=== PATIENT | female | born 1950 | race Caucasian/White ===

== ENCOUNTER → 2016-07-14 | Outpatient (CLI) | payer MEDICARE ==
[~2016-07-14] VITALS: Ht 160 cm; Wt 122.4 kg
[~2016-07-14] MED LIST: AUGM875T27 PO; BACL10TA2 PO; BRIN1TAB3 PO; BUSP10TA PO; CALC600T21 PO; FELO5TAB3 PO; K-TA10TA2 PO; LEVO125T3 PO; LIDOCAINE 2% INJ 100 MG/5 ML SDV (FOR ANES.) As Ordered ONE; MAGN1TAB25 PO; MECL-86 PO; MECL12.575 PO; NEUR100C PO; NS 1,000 ML IV SCH; OMEP40CA2 PO; PRAV40TA2 PO; PREG50CA PO; PROP1TAB29 PO; PROPOFOL 200 MG/20 ML VIAL As Ordered ONE; VITA-112 PO; VITA500C10 PO; XANA0.5T PO
--- NOTE | 2016-07-14 10:03 | ROOR ---
Patient Name: Lizbet Rodriguez Procedure Date: 07/14/2016 9:46 AM Date of : 1950 Age: 66 Room: [facility] Gender: Female Note Status: Finalized Procedure: Upper GI endoscopy Indications: Dysphagia, Heartburn Providers: Quintin FELTON MD Referring MD: SIRISHA ANDINO MD Requesting Provider: Medicines: Monitored Anesthesia Care Complications: No immediate complications. Procedure: Pre-Anesthesia Assessment: - The heart rate, respiratory rate, oxygen saturations, blood pressure, adequacy of pulmonary ventilation, and response to care were monitored throughout the procedure. The Endoscope was introduced through the mouth, and advanced to the second part of duodenum. The upper GI endoscopy was accomplished without difficulty. The patient tolerated the procedure well. Findings: A web was found at the cricopharyngeus. The scope was withdrawn. Dilation was performed with a Little dilator with mild resistance at 54 Fr. The dilation site was examined following endoscope reinsertion and showed complete resolution of luminal narrowing. The exam of the esophagus was otherwise normal. A medium-sized hiatal hernia was present. The entire examined stomach was normal. The examined duodenum was normal. 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 Dilated. - Esophagus otherwise normal - Medium-sized hiatal hernia. - Stomach otherwise normal. - Normal examined duodenum. - No specimens collected. Recommendation: - Observe patient's clinical course. - I anticipate no further need for intervention. - Continue present medications. Quintin Felton MD Quintin FELTON MD 07/14/2016 10:02:38 AM This report has been signed electronically. Number of Addenda: 0 Note Initiated On: 07/14/2016 9:46 AM Estimated Blood Loss: Estimated blood loss: none.
[2016-07-14 10:40] VITALS: BP 140/69
== END | disposition home or self-care (01) ==
LOC: M OPP 09:00
PROVIDERS: ATTEND Internal Medicine Gastroenterology
DX: K44.9 Diaphragmatic hernia without obstruction or gangrene (principal); Q39.4 Esophageal web; I10 Essential (primary) hypertension; E03.9 Hypothyroidism, unspecified; R06.83 Snoring; M79.7 Fibromyalgia; F41.9 Anxiety disorder, unspecified; G47.30 Sleep apnea, unspecified; Z79.899 Other long term (current) drug therapy; Z88.1 Allergy status to other antibiotic agents; R42 Dizziness and giddiness

== ENCOUNTER 2018-05-10 18:53 | Inpatient (IN) | payer MEDICARE ==
[2018-05-10] MEDS: HYDROMORPHONE HCL 0.5 MG/ 0.5 ML SYRINGE (J1170 PER 1) IV (19:10)
[2018-05-10] MEDS ORDERED: PROPOFOL 200 MG/20 ML VIAL As Ordered ×2 (19:48→19:54)
[2018-05-10] MEDS: PROPOFOL 200 MG/20 ML VIAL IV (19:55)
[2018-05-10 20:14] LABS: BASO # 0.1 10^3/uL (0.0-0.2); BASO % 0.8 % (0.0-1.0); EOS # 0.2 10^3/uL (0.0-0.50); EOS % 1.8 % (0.0-3.0); HEMATOCRIT 42.1 % (36.0-47.0); HEMOGLOBIN 13.7 g/dl (12.0-15.5); IMMATURE GRANULOCYTE % 0.4 % (0-3.0); LYMPH # 2.3 10^3/uL (1.5-4.5); LYMPH % 23.4 % (24.0-44.0); MEAN CORPUSCULAR HEMOGLOBIN 29.1 pg (27.0-33.0); MEAN CORPUSCULAR HGB CONC 32.5 g/dl (32.0-36.5); MEAN CORPUSCULAR VOLUME 89.4 fl (80.0-96.0); MONO # 0.7 10^3/uL (0.0-0.8); MONO % 6.7 % (0.0-5.0); NEUTROPHILS # 6.6 10^3/uL (1.8-7.7); NEUTROPHILS % 66.9 % (36.0-66.0); PLATELET COUNT, AUTOMATED 266 10^3/uL (150-450); RED BLOOD COUNT 4.71 10^6/uL (4.00-5.40); RED CELL DISTRIBUTION WIDTH 14.1 % (11.5-14.5); WHITE BLOOD COUNT 9.9 10^3/uL (4.0-10.0)
[2018-05-10 20:29] LABS: ANION GAP 6 MEQ/L (8-16); BLOOD UREA NITROGEN 20 MG/DL (7-18); CALCIUM LEVEL 8.7 MG/DL (8.8-10.2); CARBON DIOXIDE LEVEL 27 MEQ/L (21-32); CHLORIDE LEVEL 106 MEQ/L (98-107); CREATININE FOR GFR 1.15 MG/DL (0.55-1.30); GLOMERULAR FILTRATION RATE 50.1 (>45); GLUCOSE, FASTING 129 MG/DL (70-100); POTASSIUM SERUM 4.5 MEQ/L (3.5-5.1); SODIUM LEVEL 139 MEQ/L (136-145)
[2018-05-10 20:42] LABS: INR 1.02; PROTHROMBIN TIME 13.5 SECONDS (12.1-14.4)
[2018-05-10 20:52] LABS: PARTIAL THROMBOPLASTIN TIME 27.4 SECONDS (25.4-37.6)
[2018-05-10] MEDS: HEPARIN SOD (PORCINE) 5000 UNITS/ML VIAL SQ (21:00)
[2018-05-10] MEDS ORDERED: ACETAMINOPHEN TAB 650MG DOSE (2X325MG) PO (22:15)
[2018-05-10] MEDS ORDERED: ONDANSETRON 4MG/2ML VIAL (J2405) IV (22:15)
[2018-05-10] MEDS ORDERED: MORPHINE 4 MG/ML 1ML VIAL/SYRINGE (J2270) IV (22:15)
[2018-05-10 22:42] LABS: FREE THYROXINE INDEX 3.9 % (1.3-4.8); T UPTAKE 29 % (30-39); THYROXINE (T4) 13.4 UG/DL (4.5-12.0)
[2018-05-11] MEDS: PERCOCET 5MG/325MG TAB PO ×5 (01:02→21:38)
[2018-05-11] MEDS: LR 1,000 ML IV ×2 (01:09→11:35)
[2018-05-11] MEDS: SENOKOT S TAB PO ×3 (01:27→20:25)
[2018-05-11] MEDS: PROPRANOLOL 20 MG TAB PO ×3 (01:27→20:25)
[2018-05-11] MEDS: OMEPRAZOLE 20 MG CAP PO ×3 (01:27→20:25)
[2018-05-11] MEDS: busPIRone 10 MG TAB PO ×3 (01:28→20:25)
[2018-05-11] MEDS: MECLIZINE 12.5 MG TAB PO ×3 (01:28→20:25)
[2018-05-11] MEDS: LEVOTHYROXINE 125MCG TABLET (0.125MG) PO (06:19)
[2018-05-11 06:47] LABS: HEMATOCRIT 38.7 % (36.0-47.0); HEMOGLOBIN 12.2 g/dl (12.0-15.5); MEAN CORPUSCULAR HEMOGLOBIN 28.6 pg (27.0-33.0); MEAN CORPUSCULAR HGB CONC 31.5 g/dl (32.0-36.5); MEAN CORPUSCULAR VOLUME 90.8 fl (80.0-96.0); PLATELET COUNT, AUTOMATED 229 10^3/uL (150-450); RED BLOOD COUNT 4.26 10^6/uL (4.00-5.40); RED CELL DISTRIBUTION WIDTH 14.3 % (11.5-14.5); WHITE BLOOD COUNT 8.4 10^3/uL (4.0-10.0)
[2018-05-11 06:58] LABS: ANION GAP 7 MEQ/L (8-16); BLOOD UREA NITROGEN 18 MG/DL (7-18); CALCIUM LEVEL 8.3 MG/DL (8.8-10.2); CARBON DIOXIDE LEVEL 27 MEQ/L (21-32); CHLORIDE LEVEL 108 MEQ/L (98-107); CREATININE FOR GFR 0.91 MG/DL (0.55-1.30); GLOMERULAR FILTRATION RATE > 60.0 (>45); GLUCOSE, FASTING 89 MG/DL (70-100); MAGNESIUM LEVEL 1.9 MG/DL (1.8-2.4); SODIUM LEVEL 142 MEQ/L (136-145)
[2018-05-11] MEDS ORDERED: TRINTELLIX 20 MG PO (09:00)
[2018-05-11] MEDS: ASCORBIC ACID 500 MG TAB PO (10:20)
[2018-05-11] MEDS: PRAVASTATIN 20 MG TAB PO (10:20)
[2018-05-11] MEDS: MAGNESIUM OXIDE 400 MG TAB (MAG-OX) PO (10:20)
[2018-05-11] MEDS: VITAMIN D 1,000 INTERNATIONAL UNITS TABLET PO (10:20)
[2018-05-11] MEDS: HEPARIN SOD (PORCINE) 5000 UNITS/ML VIAL SQ (10:21)
[2018-05-11] MEDS: HYDROMORPHONE HCL 0.5 MG/ 0.5 ML SYRINGE (J1170 PER 1) IV (13:40)
[2018-05-12] MEDS: LR 1,000 ML IV ×4 (00:30→19:30)
[2018-05-12] MEDS: PERCOCET 5MG/325MG TAB PO ×4 (01:47→20:03)
[2018-05-12 05:50] LABS: HEMATOCRIT 41.2 % (36.0-47.0); HEMOGLOBIN 12.9 g/dl (12.0-15.5); MEAN CORPUSCULAR HEMOGLOBIN 28.6 pg (27.0-33.0); MEAN CORPUSCULAR HGB CONC 31.3 g/dl (32.0-36.5); MEAN CORPUSCULAR VOLUME 91.4 fl (80.0-96.0); PLATELET COUNT, AUTOMATED 216 10^3/uL (150-450); RED BLOOD COUNT 4.51 10^6/uL (4.00-5.40); RED CELL DISTRIBUTION WIDTH 14.1 % (11.5-14.5); WHITE BLOOD COUNT 7.1 10^3/uL (4.0-10.0)
[2018-05-12] MEDS: LEVOTHYROXINE 125MCG TABLET (0.125MG) PO (06:02)
[2018-05-12 06:08] LABS: ANION GAP 7 MEQ/L (8-16); BLOOD UREA NITROGEN 13 MG/DL (7-18); CALCIUM LEVEL 8.6 MG/DL (8.8-10.2); CARBON DIOXIDE LEVEL 28 MEQ/L (21-32); CHLORIDE LEVEL 105 MEQ/L (98-107); CREATININE FOR GFR 0.88 MG/DL (0.55-1.30); GLOMERULAR FILTRATION RATE > 60.0 (>45); GLUCOSE, FASTING 91 MG/DL (70-100); SODIUM LEVEL 140 MEQ/L (136-145)
[2018-05-12] MEDS ORDERED: MIDAZOLAM INJ 2 MG/2 ML VIAL (J2250) As Ordered ×2 (08:17→09:16)
[2018-05-12] MEDS ORDERED: fentaNYL 100 MCG/2 ML INJECTION (J3010) As Ordered ×2 (08:17→09:16)
[2018-05-12] MEDS: fentaNYL 100 MCG/2 ML INJECTION (J3010) IV (08:35)
[2018-05-12] MEDS: MIDAZOLAM INJ 2 MG/2 ML VIAL (J2250) IV (08:35)
[2018-05-12] MEDS: PROPRANOLOL 20 MG TAB PO ×3 (08:45→20:14)
[2018-05-12] MEDS ORDERED: ceFAZolin 2 GM/D5W 50 ML IV BAG (J0690 PER 500MG) As Ordered (08:51)
[2018-05-12] MEDS ORDERED: ePHEDrine SULFATE 25 MG/5 ML(5MG/ML) SYRINGE As Ordered ×2 (09:16→09:29)
[2018-05-12] MEDS ORDERED: PROPOFOL 200 MG/20 ML VIAL As Ordered ×2 (09:16→09:44)
[2018-05-12] MEDS ORDERED: PHENYLEPHRINE INJ 10MG/ML VIAL (J2370) As Ordered (09:47)
[2018-05-12] MEDS ORDERED: dexameTHASONE 10 MG/1 ML VIAL PRES.FREE (J1100) (10:14)
[2018-05-12] MEDS ORDERED: ROPIvacaine 0.5% 30 ML INJECTION (J2795 PER 1MG) (10:14)
[2018-05-12] MEDS ORDERED: EPINEPHrine INJ 1 MG/ML 1ML AMP (10:14)
[2018-05-12] MEDS ORDERED: fentaNYL 100 MCG/2 ML INJECTION (J3010) IV (11:30)
[2018-05-12] MEDS ORDERED: NORCO, ANEXSIA 5/325MG TABLET (HYDROcodone/ACETAMINOPHEN) PO (11:30)
[2018-05-12] MEDS ORDERED: ACETAMINOPHEN TAB 650MG DOSE (2X325MG) PO (11:30)
[2018-05-12] MEDS ORDERED: ONDANSETRON 4MG/2ML VIAL (J2405) IV (11:30)
[2018-05-12] MEDS ORDERED: ONDANSETRON 4MG/2ML VIAL (J2405) As Ordered (11:54)
[2018-05-12] MEDS: ONDANSETRON 4MG/2ML VIAL (J2405) IV (11:58)
[2018-05-12] MEDS: PRAVASTATIN 20 MG TAB PO (14:29)
[2018-05-12] MEDS: MAGNESIUM OXIDE 400 MG TAB (MAG-OX) PO (14:29)
[2018-05-12] MEDS: OMEPRAZOLE 20 MG CAP PO ×2 (14:29→20:13)
[2018-05-12] MEDS: MECLIZINE 12.5 MG TAB PO ×2 (14:30→20:13)
[2018-05-12] MEDS: ASCORBIC ACID 500 MG TAB PO (14:30)
[2018-05-12] MEDS: SENOKOT S TAB PO ×2 (14:30→20:13)
[2018-05-12] MEDS: VITAMIN D 1,000 INTERNATIONAL UNITS TABLET PO (14:30)
[2018-05-12] MEDS: busPIRone 10 MG TAB PO ×2 (14:30→20:13)
[2018-05-13] MEDS: LR 1,000 ML IV ×2 (03:30→11:30)
[2018-05-13] MEDS: PERCOCET 5MG/325MG TAB PO ×5 (04:03→21:10)
[2018-05-13 05:49] LABS: MEAN CORPUSCULAR HEMOGLOBIN 29.1 pg (27.0-33.0); MEAN CORPUSCULAR HGB CONC 32.4 g/dl (32.0-36.5); MEAN CORPUSCULAR VOLUME 89.6 fl (80.0-96.0); PLATELET COUNT, AUTOMATED 212 10^3/uL (150-450); RED BLOOD COUNT 4.13 10^6/uL (4.00-5.40); RED CELL DISTRIBUTION WIDTH 14.1 % (11.5-14.5); WHITE BLOOD COUNT 9.7 10^3/uL (4.0-10.0)
[2018-05-13 06:09] LABS: ANION GAP 9 MEQ/L (8-16); BLOOD UREA NITROGEN 11 MG/DL (7-18); CALCIUM LEVEL 8.1 MG/DL (8.8-10.2); CARBON DIOXIDE LEVEL 28 MEQ/L (21-32); CHLORIDE LEVEL 104 MEQ/L (98-107); CREATININE FOR GFR 0.79 MG/DL (0.55-1.30); GLOMERULAR FILTRATION RATE > 60.0 (>45); GLUCOSE, FASTING 117 MG/DL (70-100); MAGNESIUM LEVEL 2.1 MG/DL (1.8-2.4); SODIUM LEVEL 141 MEQ/L (136-145)
[2018-05-13] MEDS: ceFAZolin SOD 1 GM in D5W MINI-BAG PLUS 50 ML IV ×2 (06:44→13:22)
[2018-05-13] MEDS: LEVOTHYROXINE 125MCG TABLET (0.125MG) PO (06:44)
[2018-05-13] MEDS: ASPIRIN 325 MG TAB PO (08:25)
[2018-05-13] MEDS: OMEPRAZOLE 20 MG CAP PO ×2 (08:26→21:09)
[2018-05-13] MEDS: MECLIZINE 12.5 MG TAB PO ×2 (08:26→21:09)
[2018-05-13] MEDS: SENOKOT S TAB PO ×2 (08:26→21:09)
[2018-05-13] MEDS: MIRALAX *UNIT DOSE* 17GM PACKET PO (08:26)
[2018-05-13] MEDS: VITAMIN D 1,000 INTERNATIONAL UNITS TABLET PO (08:26)
[2018-05-13] MEDS: PROPRANOLOL 20 MG TAB PO ×2 (08:26→21:15)
[2018-05-13] MEDS: ASCORBIC ACID 500 MG TAB PO (08:26)
[2018-05-13] MEDS: PRAVASTATIN 20 MG TAB PO (08:27)
[2018-05-13] MEDS: busPIRone 10 MG TAB PO ×2 (08:27→21:11)
[2018-05-13] MEDS: MAGNESIUM OXIDE 400 MG TAB (MAG-OX) PO (08:27)
[2018-05-13] MEDS: MORPHINE 4 MG/ML 1ML VIAL/SYRINGE (J2270) IV (19:54)
[2018-05-13] MEDS: zolPIDEM TARTRATE 5 MG TAB PO (21:11)
[2018-05-14] MEDS: PERCOCET 5MG/325MG TAB PO ×3 (03:59→13:24)
[2018-05-14] MEDS: LEVOTHYROXINE 150MCG TABLET (0.15MG) PO (05:56)
[2018-05-14 06:48] LABS: HEMOGLOBIN 11.7 g/dl (12.0-15.5); MEAN CORPUSCULAR HEMOGLOBIN 28.8 pg (27.0-33.0); MEAN CORPUSCULAR HGB CONC 31.6 g/dl (32.0-36.5); MEAN CORPUSCULAR VOLUME 91.1 fl (80.0-96.0); PLATELET COUNT, AUTOMATED 200 10^3/uL (150-450); RED BLOOD COUNT 4.06 10^6/uL (4.00-5.40); RED CELL DISTRIBUTION WIDTH 14.5 % (11.5-14.5); WHITE BLOOD COUNT 7.7 10^3/uL (4.0-10.0)
[2018-05-14 07:03] LABS: ANION GAP 7 MEQ/L (8-16); BLOOD UREA NITROGEN 19 MG/DL (7-18); CALCIUM LEVEL 8.1 MG/DL (8.8-10.2); CARBON DIOXIDE LEVEL 27 MEQ/L (21-32); CHLORIDE LEVEL 108 MEQ/L (98-107); CREATININE FOR GFR 0.92 MG/DL (0.55-1.30); GLOMERULAR FILTRATION RATE > 60.0 (>45); GLUCOSE, FASTING 113 MG/DL (70-100); POTASSIUM SERUM 3.5 MEQ/L (3.5-5.1); SODIUM LEVEL 142 MEQ/L (136-145)
[2018-05-14] MEDS: PROPRANOLOL 20 MG TAB PO (08:45)
[2018-05-14] MEDS: PRAVASTATIN 20 MG TAB PO (08:45)
[2018-05-14] MEDS: ASPIRIN 325 MG TAB PO (08:45)
[2018-05-14] MEDS: POTASSIUM CHLORIDE 10 MEQ SR TABLET PO (08:45)
[2018-05-14] MEDS: SENOKOT S TAB PO (08:46)
[2018-05-14] MEDS: VITAMIN D 1,000 INTERNATIONAL UNITS TABLET PO (08:46)
[2018-05-14] MEDS: ASCORBIC ACID 500 MG TAB PO (08:46)
[2018-05-14] MEDS: MECLIZINE 12.5 MG TAB PO (08:46)
[2018-05-14] MEDS: MAGNESIUM OXIDE 400 MG TAB (MAG-OX) PO (08:46)
[2018-05-14] MEDS: OMEPRAZOLE 20 MG CAP PO (08:46)
[2018-05-14] MEDS: MIRALAX *UNIT DOSE* 17GM PACKET PO (08:47)
[2018-05-14] MEDS: busPIRone 10 MG TAB PO (08:47)
== END 2018-05-14 14:15 | disposition home or self-care (01) | DRG 494 ==
LOC: M MS5PR 05-11 00:36 → M ED 18:53 → M ED INP 22:08
PROC: 0SSG04Z Reposition Left Ankle Joint with Internal Fixation Device, Open Approach (ICD-10-PCS; principal; 2018-05-12 08:50)
DX: S82.852A Displaced trimalleolar fracture of left lower leg, initial encounter for closed fracture (principal); E03.9 Hypothyroidism, unspecified; I10 Essential (primary) hypertension; G47.33 Obstructive sleep apnea (adult) (pediatric); M79.7 Fibromyalgia; Z86.73 Personal history of transient ischemic attack (TIA), and cerebral infarction without residual deficits; E78.5 Hyperlipidemia, unspecified; Z79.82 Long term (current) use of aspirin; Z79.899 Other long term (current) drug therapy; R42 Dizziness and giddiness; W18.30XA Fall on same level, unspecified, initial encounter

== ENCOUNTER → 2019-02-28 | Outpatient (CLI) | payer MEDICARE ==
[~2019-02-28] MED LIST changes: +ASPI-255 PO; -AUGM875T27 PO; +AUGM875T28 PO; +BUME1TAB3 PO; +CALC1TAB63 PO; -CALC600T21 PO; +CALC600T60 PO; +FELO5TAB PO; -FELO5TAB3 PO; +FURO20TA2 PO; -LEVO125T3 PO; +LEVO125T4 PO; -LIDOCAINE 2% INJ 100 MG/5 ML SDV (FOR ANES.) As Ordered ONE; +LOSA50TA88 PO; -MAGN1TAB25 PO; +MAGN1TAB26 PO; -NS 1,000 ML IV SCH; +ONDA4TAB5 PO; +PERC5TAB12 PO; +POTA10CA32 PO; -PROP1TAB29 PO; +PROP20TA72 PO; -PROPOFOL 200 MG/20 ML VIAL As Ordered ONE; +[UNRECOGNIZED DRUG - CODE] PO
--- NOTE | 2019-02-28 13:58 | REP ---
REASON: Status post ORIF for trimalleolar fracture. COMPARISON: Preoperative examination of 05/10/2018. Internal fixation plate and multiple affixing screws have been applied to the lateral cortex of the distal fibula reducing that previously described fracture. The alignment is near anatomical. Cancellous screws are seen in the medial malleolus affixing that previously described fracture. The alignment is near anatomical. There is spray artifact arising from the metallic radiodensities. There is slight asymmetric narrowing of the mortise laterally. There is a healed valgus deformity. The posterior malleolar fracture has healed. The subtalar joints are within normal limits. There is no evidence of acute fracture. Even with the spray artifact arising from the metallic radiodensities, the distal tibial an distal fibular fractures appear healed. There is no abnormal soft tissue swelling. IMPRESSION: Status post ORIF as described above. There is a healed valgus deformity and there is mild asymmetric mortise narrowing as described above. There is no evidence of acute fracture. Electronically Signed by Odell Wilson DO 02/28/2019 03:56 P
== END ==
LOC: M RAD 12:06
PROVIDERS: ATTEND Orthopaedic Surgery Sports Medicine
DX: S82.842D Displaced bimalleolar fracture of left lower leg, subsequent encounter for closed fracture with routine healing (principal)

== ENCOUNTER 2019-03-25 10:47 | Day surgery (SDC) | payer MEDICARE ==
[~2019-03-25] VITALS: Ht 160 cm; Wt 110.2 kg
[~2019-03-25 10:47] MED LIST changes: +NS 1,000 ML IV ONE; -OMEP40CA2 PO; +OMEP40CA97 PO
[2019-03-25] MEDS ORDERED: LIDOCAINE 2% INJ 100 MG/5 ML SDV (FOR ANES.) As Ordered ONE (11:10)
[2019-03-25] MEDS ORDERED: PROPOFOL 200 MG/20 ML VIAL As Ordered ONE ×2 (11:10→11:52)
--- NOTE | 2019-03-25 12:18 | ROOR ---
Patient Name: Lizbet Rodriguez Procedure Date: 03/25/2019 11:27 AM Date of : 1950 Age: 68 Room: [facility] Gender: Female Note Status: Finalized Procedure: Colonoscopy Indications: Screening for colorectal malignant neoplasm Providers: Robert Rae MD Referring MD: Ambrocio Thomas MD Requesting Provider: Medicines: Monitored Anesthesia Care Complications: No immediate complications. Procedure: Pre-Anesthesia Assessment: - Prior to the procedure, a History and Physical was performed, and patient medications and allergies were reviewed. The patient is competent. The risks and benefits of the procedure and the sedation options and risks were discussed with the patient. All questions were answered and informed consent was obtained. Patient identification and proposed procedure were verified by the physician, the nurse and the anesthesiologist in the procedure room. Mental Status Examination: normal. Airway Examination: normal oropharyngeal airway and neck mobility. Respiratory Examination: clear to auscultation. CV Examination: normal. Prophylactic Antibiotics: The patient does not require prophylactic antibiotics. Prior Anticoagulants: The patient has taken no previous anticoagulant or antiplatelet agents. ASA Grade Assessment: III - A patient with severe systemic disease. After reviewing the risks and benefits, the patient was deemed in satisfactory condition to undergo the procedure. The anesthesia plan was to use monitored anesthesia care (MAC). Immediately prior to administration of medications, the patient was re-assessed for adequacy to receive sedatives. The heart rate, respiratory rate, oxygen saturations, blood pressure, adequacy of pulmonary ventilation, and response to care were monitored throughout the procedure. The physical status of the patient was re-assessed after the procedure. The Colonoscope was introduced through the anus and advanced to the cecum, identified by appendiceal orifice and ileocecal valve. The colonoscopy was performed without difficulty. The patient tolerated the procedure well. The quality of the bowel preparation was good. The terminal ileum, ileocecal valve, appendiceal orifice, and rectum were photographed. Scope insertion time was 3 minutes. Scope withdrawal time was 8 minutes. The total duration of the procedure was 11 minutes. Findings: The perianal and digital rectal examinations were normal. The terminal ileum appeared normal. Four sessile polyps were found in the ascending colon. The polyps were 3 to 5 mm in size. These polyps were removed with a cold biopsy forceps. Resection and retrieval were complete. Verification of patient identification for the specimen was done by the physician and nurse using the patient's name, date and medical record number. Estimated blood loss was minimal. A 8 mm polyp was found in the transverse colon. The polyp was sessile. The polyp was removed with a cold snare. Resection and retrieval were complete. Normal mucosa was found in the entire colon. Biopsies for histology were taken with a cold forceps from the right colon, left colon and rectosigmoid colon for evaluation of microscopic colitis. Multiple small and large-mouthed diverticula were found from sigmoid to descending colon. There was no evidence of diverticular bleeding. Non-bleeding external and internal hemorrhoids were found during retroflexion. The hemorrhoids were large. Impression: - The examined portion of the ileum was normal. - Four 3 to 5 mm polyps in the ascending colon, removed with a cold biopsy forceps. Resected and retrieved. - One 8 mm polyp in the transverse colon, removed with a cold snare. Resected and retrieved. - Normal mucosa in the entire examined colon. Biopsied. - Moderate diverticulosis from sigmoid to descending colon. There was no evidence of diverticular bleeding. - Non-bleeding external and internal hemorrhoids. Recommendation: - Patient has a contact number available for emergencies. The signs and symptoms of potential delayed complications were discussed with the patient. Return to normal activities tomorrow. Written discharge instructions were provided to the patient. - High fiber diet. - Continue present medications. - Use fiber, for example Citrucel, Fibercon, Konsyl or Metamucil. - Await pathology results. - Repeat colonoscopy in 3 - 5 years for surveillance based on pathology results. - Telephone GI clinic for pathology results in 2 weeks. - Return to primary care physician. Robert Rae MD Robert Rae MD 03/25/2019 12:18:24 PM Electronically signed by Robert Rae MD Number of Addenda: 0 Note Initiated On: 03/25/2019 11:27 AM Estimated Blood Loss: Estimated blood loss was minimal.
--- NOTE | 2019-03-25 12:28 | ROOR ---
Patient Name: Lizbet Rodriguez Procedure Date: 03/25/2019 11:26 AM Date of : 1950 Age: 68 Room: [facility] Gender: Female Note Status: Finalized Procedure: Upper GI endoscopy Indications: Dyspepsia Providers: Robert Rae MD Referring MD: Ambrocio Thomas MD Requesting Provider: Medicines: Monitored Anesthesia Care Complications: No immediate complications. Procedure: Pre-Anesthesia Assessment: - Prior to the procedure, a History and Physical was performed, and patient medications and allergies were reviewed. The patient is competent. The risks and benefits of the procedure and the sedation options and risks were discussed with the patient. All questions were answered and informed consent was obtained. Patient identification and proposed procedure were verified by the physician, the nurse and the anesthesiologist in the procedure room. Mental Status Examination: alert and oriented. Airway Examination: normal oropharyngeal airway and neck mobility. Respiratory Examination: clear to auscultation. CV Examination: normal. Prophylactic Antibiotics: The patient does not require prophylactic antibiotics. Prior Anticoagulants: The patient has taken no previous anticoagulant or antiplatelet agents. ASA Grade Assessment: II - A patient with mild systemic disease. After reviewing the risks and benefits, the patient was deemed in satisfactory condition to undergo the procedure. The anesthesia plan was to use monitored anesthesia care (MAC). Immediately prior to administration of medications, the patient was re-assessed for adequacy to receive sedatives. The heart rate, respiratory rate, oxygen saturations, blood pressure, adequacy of pulmonary ventilation, and response to care were monitored throughout the procedure. The physical status of the patient was re-assessed after the procedure. The Endoscope was introduced through the mouth, and advanced to the second part of duodenum. The upper GI endoscopy was accomplished without difficulty. The patient tolerated the procedure well. Findings: LA Grade A (one or more mucosal breaks less than 5 mm, not extending between tops of 2 mucosal folds) esophagitis with no bleeding was found 34 to 35 cm from the incisors. Biopsies were taken with a cold forceps for histology. Verification of patient identification for the specimen was done by the physician and nurse using the patient's name, date and medical record number. Estimated blood loss was minimal. A medium-sized hiatal hernia was present. Scattered mild inflammation characterized by erythema and granularity was found in the gastric antrum. Biopsies were taken with a cold forceps for Helicobacter pylori testing. The duodenal bulb and second portion of the duodenum were normal. Biopsies for histology were taken with a cold forceps for evaluation of celiac disease. Impression: - LA Grade A reflux esophagitis. Biopsied. - Medium-sized hiatal hernia. - Gastritis. Biopsied. - Normal duodenal bulb and second portion of the duodenum. Biopsied. Recommendation: - Patient has a contact number available for emergencies. The signs and symptoms of potential delayed complications were discussed with the patient. Return to normal activities tomorrow. Written discharge instructions were provided to the patient. - High fiber diet. - Continue present medications. - Follow an antireflux regimen. - Await pathology results. - Telephone GI clinic for pathology results in 2 weeks. - Return to primary care physician. Robert Rae MD Robert Rae MD 03/25/2019 12:28:20 PM Electronically signed by Robert Rae MD Number of Addenda: 0 Note Initiated On: 03/25/2019 11:26 AM Estimated Blood Loss: Estimated blood loss was minimal.
[2019-03-25 12:40] VITALS: BP 135/65
== END 2019-03-25 12:52 | disposition home or self-care (01) ==
LOC: M OPP 10:47
PROVIDERS: ATTEND Internal Medicine Gastroenterology
DX: K64.8 Other hemorrhoids (principal); D12.2 Benign neoplasm of ascending colon; D12.3 Benign neoplasm of transverse colon; K57.30 Diverticulosis of large intestine without perforation or abscess without bleeding; R19.4 Change in bowel habit; K21.0 Gastro-esophageal reflux disease with esophagitis; K44.9 Diaphragmatic hernia without obstruction or gangrene; K29.70 Gastritis, unspecified, without bleeding; R10.13 Epigastric pain; M79.7 Fibromyalgia; G57.30 Lesion of lateral popliteal nerve, unspecified lower limb; Z79.899 Other long term (current) drug therapy; Z88.8 Allergy status to other drugs, medicaments and biological substances

== ENCOUNTER 2019-04-10 10:30 | Day surgery (SDC) | payer MEDICARE ==
[~2019-04-10] VITALS: Ht 160 cm; Wt 112.0 kg
[~2019-04-10 10:30] MED LIST changes: +LR 1,000 ML IV ONE; -NS 1,000 ML IV ONE; +ceFAZolin SOD 2 GM in IV 1 EA IV ONE
[2019-04-10] MEDS ORDERED: MIDAZOLAM INJ 2 MG/2 ML VIAL (J2250) As Ordered ONE (11:12)
[2019-04-10] MEDS ORDERED: LIDOCAINE 2% INJ 100 MG/5 ML SDV (FOR ANES.) As Ordered ONE (11:12)
[2019-04-10] MEDS ORDERED: PROPOFOL 200 MG/20 ML VIAL As Ordered ONE (11:12)
[2019-04-10] MEDS ORDERED: dexameTHASONE 4 MG/ML 1ML VIAL (J1100) As Ordered ONE (11:13)
[2019-04-10] MEDS ORDERED: fentaNYL 100 MCG/2 ML INJECTION (J3010) As Ordered ONE ×2 (11:13→15:29)
[2019-04-10] MEDS ORDERED: ONDANSETRON 4MG/2ML VIAL (J2405) As Ordered ONE (11:13)
[2019-04-10] MEDS ORDERED: METOCLOPRAMIDE INJ 10MG/2ML VIAL (J2765) As Ordered ONE (11:38)
[2019-04-10] MEDS ORDERED: KETOROLAC 60 MG/2 ML VIAL (J1885) As Ordered ONE ×3 (11:44→17:40)
[2019-04-10] MEDS ORDERED: BUPIVACAINE HCL 0.25% 30 ML VIAL As Ordered ONE (13:06)
--- NOTE | 2019-04-10 13:43 | RO ---
DATE OF PROCEDURE: 04/10/2019 PREOPERATIVE DIAGNOSIS: Left ankle painful hardware. POSTOPERATIVE DIAGNOSIS: Left ankle painful hardware. PLANNED PROCEDURE: Removal left ankle medial malleolus screws. PROCEDURE PERFORMED: Removal left ankle medial malleolus screws. SURGEON: Sandeep Roberts MD BULB GRADER: TESTING AND REGULATING CHIEF: Dr. Plunkett TYPE OF ANESTHETIC: General anesthetic. OPERATIVE PREAMBLE: this 68-year-old female underwent open reduction internal fixation for unstable bimalleolar fracture. She complained about persistent pain at the medial malleolus. It was elected to go ahead with hardware removal after discussion of the pros, cons, risks, benefits of nonsurgical versus surgical management of this. I reiterated these risks in preoperative holding, signed the left lower extremity and went ahead with surgery. OPERATIVE REPORT: Patient was brought to operating theater. Placed supine on the operating room table. All bony prominences were padded appropriately. Tourniquet was applied to the left thigh. General anesthesia was induced. 2 grams of IV Ancef was administered. Preoperative time out was performed to confirm the site, the patient and surgery. The limb was prepped and draped in the usual sterile fashion allowing ample time for the prep solution to dry before draping. The leg was elevated and tourniquet inflated to 250 mmHg. Began by using the old medial malleolus incision. I used about two-thirds of this. I carried dissection down through skin and subcutaneous tissue. Achieved meticulous hemostasis. I protected the saphenous vein throughout the case. Hardware was identified and removed. Bone was smoothed down with a rongeur. Screws were intact at the tips along the length. Wound was thoroughly irrigated with normal saline. Subcutaneous tissue was closed with interrupted #2-0 Vicryl. Tourniquet was taken down prior to the end of the case. Skin was closed with running #3-0 Monocryl. 9 mL of 0.25% bupivacaine was instilled in and around the incision site. This was followed by cleansing the skin with wet and dry dressing followed by application of Steri-Strips, Adaptic, 4x 8 gauze and overwrapped with sterile 6 inch Jonathan bandage. The patient was woken up from general anesthetic, transferred off the operating table and taken to the postanesthetic care unit in stable condition. All sponge, needle, instrument counts were correct. Estimated blood loss 10 mL. PLAN: The patient's be partial weightbearing with crutches for the first 2 weeks progressing quickly to full weightbearing. I will follow him up in the office in two weeks time. I would like for her to change dressing on postoperative day two. She is aware of the plan and look forward to seeing her in followup.
[2019-04-10] MEDS ORDERED: HYDROMORPHONE HCL 0.5 MG/ 0.5 ML SYRINGE (J1170 PER 1) IV PRN (13:45)
[2019-04-10] MEDS ORDERED: ONDANSETRON 4MG/2ML VIAL (J2405) IV PRN (13:45)
[2019-04-10] MEDS ORDERED: fentaNYL 100 MCG/2 ML INJECTION (J3010) IV PRN (13:45)
[2019-04-10] MEDS ORDERED: PERCOCET 5MG/325MG TAB PO PRN ×2 (13:45→14:46)
[2019-04-10] MEDS ORDERED: LR 1,000 ML IV SCH ×2 (13:45→14:46)
[2019-04-10] MEDS ORDERED: ACETAMINOPHEN TAB 650MG DOSE (2X325MG) PO PRN (14:46)
[2019-04-10] MEDS ORDERED: MORPHINE 2 MG/ML 1ML VIAL (J2270) IV PRN (14:46)
[2019-04-10] MEDS ORDERED: PHENYLephrine HCL 500 MCG/5 ML (100MCG/ML) SYRINGE (J2370) As Ordered ONE ×3 (14:53→17:37)
[2019-04-10] MEDS ORDERED: ePHEDrine SULFATE 25 MG/5 ML(5MG/ML) SYRINGE As Ordered ONE ×2 (15:08→15:15)
[2019-04-10] MEDS ORDERED: ROCURONIUM BROMIDE 50 MG/5 ML VIAL As Ordered ONE (15:26)
[2019-04-10 16:48] VITALS: BP 121/78
[2019-04-10] MEDS ORDERED: ACETAMINOPHEN 1000MG 100ML IV BTL (OFIRMEV) (J0131 PER 10MG) As Ordered ONE (17:34)
[2019-04-10] MEDS ORDERED: HYDROmorphone HCL 2 MG/ML 1ML VIAL (J1170) As Ordered ONE (17:42)
== END 2019-04-10 16:48 | disposition home or self-care (01) ==
LOC: M SDC 10:30
PROVIDERS: ATTEND Orthopaedic Surgery Sports Medicine
DX: T84.84XA Pain due to internal orthopedic prosthetic devices, implants and grafts, initial encounter (principal); Y79.2 Prosthetic and other implants, materials and accessory orthopedic devices associated with adverse incidents; I11.9 Hypertensive heart disease without heart failure; E78.5 Hyperlipidemia, unspecified; E03.9 Hypothyroidism, unspecified; K44.9 Diaphragmatic hernia without obstruction or gangrene; M79.7 Fibromyalgia; R32 Unspecified urinary incontinence; K21.9 Gastro-esophageal reflux disease without esophagitis; F41.9 Anxiety disorder, unspecified; F32.9 Major depressive disorder, single episode, unspecified; G47.30 Sleep apnea, unspecified; Z88.1 Allergy status to other antibiotic agents; Z79.899 Other long term (current) drug therapy; Z87.81 Personal history of (healed) traumatic fracture
CPT/HCPCS: 20680; J0131; J0690; J1100; J1170; J1885; J2250; J2370; J2405; J2765; J3010

== ENCOUNTER → 2019-07-01 | Outpatient (CLI) | payer MEDICARE, MEDICAID ==
[~2019-07-01] MED LIST changes: +D 202000 PO; +DEXI30CA2 PO; -FELO5TAB PO; +FELO5TAB26 PO; -LR 1,000 ML IV ONE; -MECL12.575 PO; +MECL12.589 PO; +ONDA-83 PO; -ONDA4TAB5 PO; -ceFAZolin SOD 2 GM in IV 1 EA IV ONE
[2019-07-01 12:47] LABS: HEMATOCRIT 48.4 % (36.0-47.0); MEAN CORPUSCULAR HEMOGLOBIN 28.4 pg (27.0-33.0); MEAN CORPUSCULAR VOLUME 91.7 fl (80.0-96.0); PLATELET COUNT, AUTOMATED 284 10^3/uL (150-450); RED BLOOD COUNT 5.28 10^6/uL (4.00-5.40); WHITE BLOOD COUNT 7.1 10^3/uL (4.0-10.0)
[2019-07-01 12:58] LABS: INR 1.01
[2019-07-01 13:07] LABS: POTASSIUM SERUM 4.4 MEQ/L (3.5-5.1)
== END ==
LOC: M LAB 12:10
PROVIDERS: ATTEND Orthopaedic Surgery Sports Medicine
DX: Z01.818 Encounter for other preprocedural examination (principal)

== ENCOUNTER 2019-07-04 13:23 | Day surgery (SDC) | payer MEDICARE, MEDICAID ==
[~2019-07-04] VITALS: Ht 160 cm; Wt 112.5 kg
[~2019-07-04 13:23] MED LIST changes: +LR 1,000 ML IV ONE
[2019-07-04] MEDS: ceFAZolin SOD 2 GM in IV 1 EA IV ONE ×2 (15:35→15:55)
[2019-07-04] MEDS ORDERED: LIDOCAINE 2% INJ 100 MG/5 ML SDV (FOR ANES.) As Ordered ONE (16:00)
[2019-07-04] MEDS ORDERED: propofoL 200 MG/20 ML VIAL As Ordered ONE ×2 (16:00→16:11)
[2019-07-04] MEDS ORDERED: MIDAZOLAM INJ 2 MG/2 ML VIAL (J2250) As Ordered ONE (16:00)
[2019-07-04] MEDS ORDERED: fentaNYL 100 MCG/2 ML INJECTION (J3010) As Ordered ONE (16:00)
[2019-07-04] MEDS ORDERED: dexameTHASONE 4 MG/ML 1ML VIAL (J1100) As Ordered ONE (16:00)
[2019-07-04] MEDS ORDERED: ONDANSETRON 4MG/2ML VIAL (J2405) As Ordered ONE (16:00)
[2019-07-04] MEDS ORDERED: ceFAZolin 1GM INJ (J0690 PER 500MG) As Ordered ONE (16:01)
[2019-07-04] MEDS ORDERED: BUPIVACAINE HCL 0.25% 30 ML VIAL As Ordered ONE (16:10)
[2019-07-04] MEDS ORDERED: KETOROLAC 60 MG/2 ML VIAL (J1885) As Ordered ONE (16:17)
[2019-07-04] MEDS ORDERED: ONDANSETRON 4MG/2ML VIAL (J2405) IV PRN ×2 (17:15→17:30)
[2019-07-04] MEDS ORDERED: LR 1,000 ML IV SCH ×2 (17:15→17:30)
[2019-07-04] MEDS ORDERED: ACETAMINOPHEN TAB 650MG DOSE (2X325MG) PO PRN (17:30)
[2019-07-04] MEDS ORDERED: PERCOCET 5MG/325MG TAB PO PRN (17:30)
[2019-07-04] MEDS ORDERED: MORPHINE 2 MG/ML 1ML VIAL (J2270) IV PRN (17:30)
[2019-07-04] MEDS: oxyCODONE 5MG TAB PO PRN ×2 (17:38→20:00)
[2019-07-04] MEDS: fentaNYL 100 MCG/2 ML INJECTION (J3010) IV PRN ×2 (17:39→17:54)
--- NOTE | 2019-07-04 17:39 | REP ---
Right ankle seven single intraoperative fluoroscopic view: The tip of an orthopedic screw is seen in the distal tibia. There is a screw tract in the adjacent distal fibula. Skin judie are along the lateral margin of the distal fibula. The skeletal structures are otherwise unremarkable. Fluoroscopic exposure time is 3 seconds. Electronically Signed by Cade Flores MD 07/04/2019 05:31 P
--- NOTE | 2019-07-04 19:33 | RO ---
DATE OF PROCEDURE: 07/04/2019 PREOPERATIVE DIAGNOSIS: Painful left ankle hardware. POSTOPERATIVE DIAGNOSIS: Painful left ankle hardware. PLANNED PROCEDURE: Left ankle hardware removal. PROCEDURE PERFORMED: Left ankle hardware removal. SURGEON: Sandeep Robrets MD ANODIZER: None. ANESTHESIA: GA BIG DATA SOFTWARE ENGINEER: Dr. Araujo OPERATIVE PREAMBLE: This 68-year-old female had a bimalleolar ankle fracture with syndesmosis injury. She was having persistent medial-sided pain, and we took out the medial screws. Unfortunately, she developed pain over the syndesmosis on the lateral side of her ankle, so went ahead, after discussion of the pros and cons, the risks and benefits of nonoperative versus operative management, to remove the lateral hardware and syndesmosis screw. I reiterated the risks in preoperative holding and marked the left lower extremity. DESCRIPTION OF PROCEDURE: The patient was brought to operating theater. She was placed supine on the operating room table. Bump was applied under the left hip. All bony prominences were padded. Sequential compression devices (SCDs) on the right lower extremity. General anesthesia was induced. Tourniquet was applied to the left thigh, appropriately padded. General anesthesia was induced. The limb was prepped and draped in the usual sterile fashion allowing over 3 minutes for the prep solution to dry. Preoperative time-out was performed confirming the site, the patient, and the surgery. Limb was elevated, tourniquet inflated to 250 mmHg. I used the old lateral skin incision. I carried the dissection down through skin and subcutaneous tissue to meticulous hemostasis. I identified the plate. I removed scar tissue from in and around the plate, removed the screws proximally and distally throughout the entire length of the plate. I removed the plate. Syndesmosis screw had already broken inside the tibia. I removed the lateral aspect of that screw, but the screw at the tibia left in situ as it was not prominent medially. Wound was thoroughly irrigated. The screw holes were then curetted and rongeured down to smooth surface. Subcutaneous tissues were closed with interrupted #2-0 Vicryl suture and running #2-0 Vicryl suture as well. Tourniquet was taken down, meticulous hemostasis achieved. Skin was cleaned with wet and dry dressing. Skin was closed with judie. 12 mL of 0.25% Marcaine was used in and around the incision site. Reynaldo, 4x8 gauze, ABD dressing and soft cast padding with a sterile 6-inch Jonathan bandage was then overwrapped. The patient was woken up from the general anesthetic, transferred off the operating table, and taken to the postanesthetic care unit in stable condition. All sponge counts and needle counts were correct. Estimated blood loss 50 mL. No complications. The patient is to be weightbearing as tolerated, gentle range of motion of the ankle. I warned her about the possibility of fracture risk. Follow up in the office in 2 weeks' time, change the bandage as well as discontinue the judie. Prescription was sent into the pharmacy of choice. [facility]
[2019-07-04] MEDS ORDERED: oxyCODONE 5MG TAB As Ordered ONE (19:56)
[2019-07-04 20:20] VITALS: BP 131/64
== END 2019-07-04 20:33 | disposition home or self-care (01) ==
LOC: M SDC 13:23
PROVIDERS: ATTEND Orthopaedic Surgery Sports Medicine
DX: T84.84XA Pain due to internal orthopedic prosthetic devices, implants and grafts, initial encounter (principal); Y79.2 Prosthetic and other implants, materials and accessory orthopedic devices associated with adverse incidents; I10 Essential (primary) hypertension; E78.00 Pure hypercholesterolemia, unspecified; E03.9 Hypothyroidism, unspecified; K44.9 Diaphragmatic hernia without obstruction or gangrene; K21.9 Gastro-esophageal reflux disease without esophagitis; M19.90 Unspecified osteoarthritis, unspecified site; M79.7 Fibromyalgia; F41.9 Anxiety disorder, unspecified; F32.9 Major depressive disorder, single episode, unspecified; G43.909 Migraine, unspecified, not intractable, without status migrainosus; G47.30 Sleep apnea, unspecified; Z88.1 Allergy status to other antibiotic agents; Z79.899 Other long term (current) drug therapy; Z87.81 Personal history of (healed) traumatic fracture
CPT/HCPCS: 20680; 73610; J0690; J1100; J1885; J2250; J2405; J3010

== ENCOUNTER 2021-08-01 13:12 | Observation (INO) | payer MEDICARE, MEDICAID ==
[~2021-08-01] VITALS: Ht 160 cm; Wt 120.5 kg
[~2021-08-01 13:12] MED LIST changes: +LOSA50TA28 PO; -LOSA50TA88 PO; -LR 1,000 ML IV ONE; +MECL-136 PO; -MECL12.589 PO; +OMEP40CA4 PO; -OMEP40CA97 PO; +VITA100065 PO; -[UNRECOGNIZED DRUG - CODE] PO
[2021-08-01] MEDS ORDERED: MEMA10TA19 PO ×2 (13:40→22:39)
[2021-08-01] MEDS ORDERED: PRED10PA PO (13:40)
[2021-08-01] MEDS ORDERED: MELO15TA28 PO ×2 (13:40→22:39)
[2021-08-01] MEDS ORDERED: MECL1TAB31 PO (13:40)
[2021-08-01] MEDS: ALBUTEROL 90 MCG/ACT 8GM HFA INHALER INH SCH ×3 (17:41→18:08)
[2021-08-01 17:42] LABS: ABG BASE EXCESS 0.6 (-2.0-2.0); ABG HCO3 24.3 MEQ/L (22.0-26.0); ABG O2 SATURATION 97.7 % (95.0-99.0); ABG PARTIAL PRESSURE CO2 36.4 mmHg (35.0-45.0); ABG PARTIAL PRESSURE O2 94.8 mmHg (75.0-100.0); ABG TOTAL CO2 25.4 MEQ/L (23.0-31.0); ABG pH (ARTERIAL) 7.442 UNITS (7.350-7.450)
[2021-08-01 17:58] LABS: BASO # 0.1 10^3/uL (0.0-0.2); BASO % 0.8 % (0.0-1.0); EOS # 0.1 10^3/uL (0.0-0.5); EOS % 0.7 % (0.0-3.0); HEMATOCRIT 47.9 % (36.0-47.0); HEMOGLOBIN 15.4 g/dl (12.0-15.5); LYMPH % 24.6 % (24.0-44.0); MEAN CORPUSCULAR HEMOGLOBIN 28.9 pg (27.0-33.0); MEAN CORPUSCULAR HGB CONC 32.2 g/dl (32.0-36.5); MONO # 1.1 10^3/uL (0.0-0.8); MONO % 8.9 % (2.0-8.0); NEUTROPHILS # 7.3 10^3/uL (1.5-8.5); NEUTROPHILS % 60.3 % (36.0-66.0); PLATELET COUNT, AUTOMATED 284 10^3/uL (150-450); RED BLOOD COUNT 5.32 10^6/uL (4.00-5.40); WHITE BLOOD COUNT 12.2 10^3/uL (4.0-10.0)
[2021-08-01 18:20] LABS: CK-MB VALUE MASS < 1.0 NG/ML (<3.6); CPK CREATINE PHOSPHOKINASE 38 U/L (26-192); MB/CK RELATIVE INDEX 2.63 (< OR =4)
[2021-08-01 18:30] LABS: BLOOD UREA NITROGEN 22 MG/DL (7-18); CALCIUM LEVEL 8.8 MG/DL (8.8-10.2); CARBON DIOXIDE LEVEL 27 MEQ/L (21-32); CHLORIDE LEVEL 105 MEQ/L (98-107); CREATININE FOR GFR 0.93 MG/DL (0.55-1.30); GLOMERULAR FILTRATION RATE > 60.0 (>39); GLUCOSE, FASTING 78 MG/DL (70-100); POTASSIUM SERUM 4.6 MEQ/L (3.5-5.1); SODIUM LEVEL 137 MEQ/L (136-145)
[2021-08-01] MEDS ORDERED: ISOVUE-370 76% 100ML VIAL As Ordered ONE (18:34)
[2021-08-01 20:12] LABS: INR 1.07; PROTHROMBIN TIME 14.3 SECONDS (12.7-14.5)
[2021-08-01 20:13] LABS: PARTIAL THROMBOPLASTIN TIME 24.1 SECONDS (25.9-37.0)
[2021-08-01 20:35] LABS: NT-PRO BNP 231 PG/ML (<125)
[2021-08-01] MEDS ORDERED: ENOXAPARIN 120MG/0.8ML SYRINGE (J1650 PER 10MG) SC STA (21:28)
[2021-08-01 21:39] LABS: CK-MB VALUE MASS 1.2 NG/ML (<3.6); MB/CK RELATIVE INDEX 4.14 (< OR =4)
[2021-08-01] MEDS ORDERED: MECL-86 PO (22:39)
[2021-08-01] MEDS ORDERED: SUCR1ORA2 PO (22:39)
[2021-08-01] MEDS ORDERED: POTA10TA17 PO (22:39)
[2021-08-01] MEDS ORDERED: SYNT150T PO (22:39)
[2021-08-01] MEDS ORDERED: HOME MED LIST COMPLETE! XX SCH (22:40)
[2021-08-01] MEDS ORDERED: ACETAMINOPHEN TAB 650MG DOSE (2X325MG) PO PRN (22:55)
[2021-08-01 23:00] VITALS: BP 134/67
[2021-08-02 04:00] VITALS: BP 124/71
[2021-08-02 08:00] VITALS: BP 133/67
[2021-08-02] MEDS ORDERED: APIXABAN 2.5 MG TAB (ELIQUIS) PO SCH (09:00)
[2021-08-02] MEDS ORDERED: APIXABAN 5 MG TAB (ELIQUIS) PO SCH (09:00)
[2021-08-02] MEDS ORDERED: ELIQ5TAB PO (09:38)
[2021-08-02 12:00] VITALS: BP 139/94
[2021-08-02] MEDS ORDERED: FLUBLOK(EGG FREE)(QUAD)INFLUENZA VACC 0.5ML SYRINGE 18YRS & OLDER IM ONE (14:00)
[2021-08-02] MEDS ORDERED: PREVNAR 13 VACCINE SYRINGE IM ONE (15:00)
[2021-08-09] MEDS ORDERED: APIXABAN 5 MG TAB (ELIQUIS) PO SCH (09:00)
== END 2021-08-02 16:22 | disposition home health service (06) ==
LOC: M ED 13:12 → M ED INP 13:13 → ENRESERV 21:54 → M PCU 22:54
PROVIDERS: ADMIT Internal Medicine; ATTEND Internal Medicine
DX: I26.94 Multiple subsegmental thrombotic pulmonary emboli without acute cor pulmonale (principal); I10 Essential (primary) hypertension; E03.9 Hypothyroidism, unspecified; Z86.16 Personal history of COVID-19; F32.9 Major depressive disorder, single episode, unspecified; Z79.01 Long term (current) use of anticoagulants; Z79.899 Other long term (current) drug therapy; Z88.0 Allergy status to penicillin
CPT/HCPCS: 36415; 36600; 71275; 80048; 82550; 82553; 82803; 83880; 84484; 85025; 85610; 85730; 87798; 90670; 90682; 93005; 93306; 94640; 96372; 99284; G0008; G0009; G0378; J1650; Q9967

== ENCOUNTER 2023-11-24 07:51 | Emergency (ER) | payer MEDICARE, MEDICAID ==
[~2023-11-24] VITALS: Ht 160 cm; Wt 96.5 kg
[~2023-11-24 07:51] MED LIST changes: +ELIQ5TAB PO; -K-TA10TA2 PO; +MECL-209 PO; +MELO15TA28 PO; +MEMA10TA PO; +POTA-150 PO; +POTA-165 PO; -POTA10CA32 PO; +POTA10CA70 PO; +PRED10PA PO; +SUCR1ORA2 PO; +SYNT150T PO
[2023-11-24] MEDS ORDERED: HYDR-3713 PO (10:20)
[2023-11-24] MEDS: ACETAMINOPHEN 325 MG TAB PO ONE (10:24)
[2023-11-24 10:33] VITALS: BP 142/84; TEMP 98.5; O2SAT 93
== END 2023-11-24 10:35 | disposition home or self-care (01) ==
LOC: M ED 07:51
DX: S42.201A Unspecified fracture of upper end of right humerus, initial encounter for closed fracture (principal); W01.0XXA Fall on same level from slipping, tripping and stumbling without subsequent striking against object, initial encounter; I10 Essential (primary) hypertension; F12.10 Cannabis abuse, uncomplicated; Z86.16 Personal history of COVID-19; Z86.711 Personal history of pulmonary embolism; Y92.009 Unspecified place in unspecified non-institutional (private) residence as the place of occurrence of the external cause; Y93.89 Activity, other specified; Y99.9 Unspecified external cause status; Z88.1 Allergy status to other antibiotic agents; Z79.01 Long term (current) use of anticoagulants; Z79.899 Other long term (current) drug therapy; Z79.810 Long term (current) use of selective estrogen receptor modulators (SERMs)

== ENCOUNTER → 2023-12-19 | Outpatient (CLI) | payer MEDICARE, MEDICAID ==
[~2023-12-19] MED LIST changes: +HYDR-3713 PO
== END ==
LOC: M SOG 07:58
PROVIDERS: ATTEND Physician Assistant
DX: S42.201A Unspecified fracture of upper end of right humerus, initial encounter for closed fracture (principal); Y93.9 Activity, unspecified; Y92.9 Unspecified place or not applicable

== ENCOUNTER → 2024-03-11 | Outpatient (CLI) | payer MEDICARE, MEDICAID | LOC: M SOG 15:19 | PROVIDERS: ATTEND Physician Assistant | DX: S42.201A Unspecified fracture of upper end of right humerus, initial encounter for closed fracture (principal); Y93.9 Activity, unspecified; Y92.9 Unspecified place or not applicable ==

== ENCOUNTER → 2024-06-09 | Outpatient (CLI) | payer MEDICARE, MEDICAID | LOC: M SOG 07:55 | PROVIDERS: ATTEND Physician Assistant | DX: S42.201A Unspecified fracture of upper end of right humerus, initial encounter for closed fracture (principal); W18.30XA Fall on same level, unspecified, initial encounter; Y92.009 Unspecified place in unspecified non-institutional (private) residence as the place of occurrence of the external cause ==